=== PATIENT | male | born 1990 | race Two or more races ===

== ENCOUNTER 2024-12-17 20:25 | Emergency (ER) | payer OTHER ==
[~2024-12-17] VITALS: Ht 177.8 cm; Wt 86.2 kg
[2024-12-17] MEDS ORDERED: ACETAMINOPHEN 500 MG GEL..CAP PO ONE (21:23)
[2024-12-18] MEDS ORDERED: TRAMADOL HCL 50 MG TABLET PO STA (01:34)
[2024-12-18] MEDS ORDERED: KETOROLAC TROMETHAMINE 60 MG VIAL IM STA (01:34)
[2024-12-18] MEDS ORDERED: TETANUS & DIPHTHERIA TOX,ADULT 0.5 ML VIAL IM STA (01:35)
[2024-12-18] MEDS ORDERED: CLINDAMYCIN PHOSPHATE 150 MG/ML (900mg) IV STA (01:36)
[2024-12-18] MEDS ORDERED: KETOROLAC TROMETHAMINE 60 MG VIAL IM ONE (01:39)
[2024-12-18] MEDS ORDERED: CLINDAMYCIN PHOSPHATE 150 MG/ML (900mg) ONE (01:40)
[2024-12-18] MEDS ORDERED: DIPHTH,PERTUSS(ACELL),TET VAC 0.5 ML SYRINGE IM ONE (01:40)
== END 2024-12-18 03:26 | disposition home or self-care (01) ==
LOC: ER 21:34
DX: G89.11 Acute pain due to trauma (principal); M79.642 Pain in left hand
CPT/HCPCS: 73130; 90471; 90714; J1670